=== PATIENT | male | born 1970 | race African-American/Black ===

== ENCOUNTER 2019-05-18 14:30 | Inpatient (IN) | payer OTHER ==
[2019-05-18 16:56] VITALS: BMI 22.5
--- NOTE | 2019-05-18 18:26 | HP ---
CIWA Score Nausea/Vomitin Muscle Tremors: 2 Anxiety: 2 Agitation: 2 Paroxysmal Sweats: 1-Minimal Palms Moist Orientation: 0-Oriented Tacttile Disturbances: 1-Very Mild Itch/Numbness Auditory Disturbances: 1-Very Mild Visual Disturbances: 0-None Headache: 2-Mild CIWA-Ar Total Score: 13 - Admission Criteria OASAS Guidelines: Admission for Medically Managed Detox: Requires at least one of the followin. CIWA greater than 12 2. Seizures within the past 24 hours 3. Delirium tremens within the past 24 hours 4. Hallucinations within the past 24 hours 5. Acute intervention needed for co occurring medical disorder 6. Acute intervention needed for co occurring psychiatric disorder 7. Severe withdrawal that cannot be handled at a lower level of care (continued vomiting, continued diarrhea, abnormal vital signs) requiring intravenous medication and/or fluids 8. Admission ROS BHS - HPI Chief Complaint: i need help to stop drinking alcohol Allergies/Adverse Reactions: Allergies Allergy/AdvReac Type Severity Reaction Status Date / Time No Known Allergies Allergy Verified 05/18/19 16:41 History of Present Illness: this 49 years old male with alcohol dependence,seeking detox,withdrawal symptom, multiple admissions in detox,last 03/15 unknown facility syncope alcohol related hypertension non compliance no significant period of sobriety plan for out ptient program after detox - Ebola screening Have you traveled outside of the country in the last 21 days: No (N) Have you had contact with anyone from an Ebola affected area: No Do you have a fever: No - Review of Systems Constitutional: Chills, Loss of Appetite, Malaise, Night Sweats, Changes in sleep, Unintentional Wgt. Loss EENT: reports: Nose Congestion Respiratory: reports: No Symptoms reported Cardiac: reports: No Symptoms Reported GI: reports: Nausea, Poor Appetite, Abdominal cramping : reports: No Symptoms Reported Musculoskeletal: reports: Back Pain, Muscle Pain Integumentary: reports: Dryness Neuro: reports: Tremors Endocrine: reports: No Symptoms Reported Hematology: reports: No Symptoms Reported Psychiatric: reports: No Sypmtoms Reported, Judgement Intact, Mood/Affect Appropiate, Orientated x3 Other Systems: Reviewed and Negative Patient History - Patient Medical History Hx Anemia: No Hx Asthma: No Hx Chronic Obstructive Pulmonary Disease (COPD): No Hx Cardiac Disorders: No Hx Congestive Heart Failure: No Hx Hypertension: Yes (on medication non compliiance) Hx Pacemaker: No HX Cerebrovascular Accident: No Hx Seizures: No Hx Dementia: No Hx Diabetes: No Hx Gastrointestinal Disorders: No Hx Liver Disease: No Hx Genitourinary Disorders: No Hx Sexually Transmitted Disorders: No Hx Renal Disease (ESRD): No Hx Thyroid Disease: No Hx Human Immunodeficiency Virus (HIV): No (last 03/15 negative) Hx Hepatitis C: No Hx Depression: Yes (anxiety) Hx Suicide Attempt: No Hx Bipolar Disorder: No Hx Schizophrenia: No Other Medical History: no suicidal,no hmicidal - Patient Surgical History Past Surgical History: No Hx Neurologic Surgery: No Hx Cataract Extraction: No Hx Cardiac Surgery: No Hx Lung Surgery: No Hx Breast Surgery: No Hx Breast Biopsy: No Hx Abdominal Surgery: No Hx Appendectomy: No Hx Cholecystectomy: No Hx Genitourinary Surgery: No Hx Section: No Hx Orthopedic Surgery: No Anesthesia Reaction: No - PPD History Previous Implant?: Yes Documented Results: Negative w/o proof Date: 06/14/12 PPD to be Administered?: Yes - Smoking Cessation Smoking history: Never smoked Aproximately how many cigarettes per day: 0 Hx Chewing Tobacco Use: No - Substance & Tx. History Hx Alcohol Use: Yes Hx Substance Use: No Substance Use Type: Alcohol Hx Substance Use Treatment: Yes (03/15 unknown facility) - Substances abused Alcohol Substance route: Oral Frequency: Daily Amount used: 1 to 2 pints of vodka. Age of first use: 28 Date of last use: 05/18/19 Family Disease History - Family Disease History Family History: Denies Admission Physical Exam [facility] - Vital Signs Vital Signs: Vital Signs - 24 hr 05/18/19 16:49 Temperature 97.5 F L Pulse Rate 83 Respiratory 18 Rate Blood Pressure 138/85 - Physical General Appearance: Yes: Moderate Distress, Tremorous, Irritable, Sweating, Anxious HEENTM: Yes: Normal ENT Inspection, MATI, Pharynx Normal Respiratory: Yes: Lungs Clear, Normal Breath Sounds, No Respiratory Distress Neck: Yes: Within Normal Limits, Supple, Trachea in good position Breast: Yes: Within Normal Limits Cardiology: Yes: Within Normal Limits, Regular Rhythm, Regular Rate, S1, S2 Abdominal: Yes: Within Normal Limits, Normal Bowel Sounds, Non Tender, Flat, Soft Genitourinary: Yes: Within Normal Limits Back: Yes: Muscle Spasm Musculoskeletal: Yes: Back pain, Muscle Pain Extremities: Yes: Tremors, Inflammation Neurological: Yes: Fully Oriented, Alert, Motor Strength 5/5 Integumentary: Yes: Dry Lymphatic: Yes: Within Normal Limits - Diagnostic (1) Alcohol dependence with uncomplicated withdrawal Current Visit: Yes Status: Acute (2) Alcohol dependence with uncomplicated intoxication Current Visit: Yes Status: Acute (3) Essential hypertension Current Visit: No Status: Active (4) Syncope Current Visit: No Status: Active Cleared for Admission S - Detox or Rehab [facility] Level of Care: Medically Managed Detox Regimen/Protocol: Librium Breathalyzer - Breathalyzer Breathalyzer: 0.239 Urine Drug Screen - Test Device Lot number: [id number] Expiration date: 01/24/21 - Control Is test valid?: Yes - Results Drug screen NEGATIVE: No Urine drug screen results: BZO-Benzodiazepines Inpatient Rehab Admission - Rehab Decision to Admit Inpatient rehab admission?: No
[2019-05-18] MEDS ORDERED: MAGNESIUM CITRATE 300 ML BOTTLE PO PRN (18:30)
[2019-05-18] MEDS ORDERED: IBUPROFEN 400 MG TABLET (FP) PO PRN (18:30)
[2019-05-18] MEDS ORDERED: hydrOXYzine PAMOATE 25 MG CAPSULE (FP) PO PRN (18:30)
[2019-05-18] MEDS ORDERED: MAGNESIUM HYDROX 2400MG/30ML ORAL SUSPENSION 30 ML CUP PO PRN (18:30)
[2019-05-18] MEDS ORDERED: MENTHOL/PHENOL 1 EACH UD MM PRN (18:30)
[2019-05-18] MEDS ORDERED: MAG HYDROX/AL HYDROX/SIMETH 30 ML UNIT-DOSE CUP PO PRN (18:30)
[2019-05-18] MEDS ORDERED: ACETAMINOPHEN 325 MG TABLET (FP) PO PRN ×2 (18:30)
[2019-05-18] MEDS ORDERED: METHOCARBAMOL 500 MG TABLET PO PRN (18:30)
[2019-05-18] MEDS ORDERED: BISMUTH SUBSALICYLATE 524 MG/30 ML UD PO PRN (18:30)
[2019-05-18] MEDS: chlordiazePOXIDE HCL 10 MG CAPSULE PO PRN (19:24)
[2019-05-18] MEDS: THIAMINE HCL 100 MG TABLET (FP) PO SCH (22:46)
[2019-05-18] MEDS: chlordiazePOXIDE HCL 25 MG CAPSULE PO SCH (23:46)
[2019-05-19] MEDS: chlordiazePOXIDE HCL 25 MG CAPSULE PO SCH ×2 (06:05→12:51)
[2019-05-19] MEDS: amLODIPine BESYLATE 5 MG TABLET (FP) PO SCH (10:14)
[2019-05-19] MEDS: PRENATAL VITAMINS W/ FOLIC ACID TABLET (FP) PO SCH (10:14)
[2019-05-19 10:34] LABS: HEMATOCRIT 39.9 % (35.4-49); MCHC 32.6 g/dl (32.0-35.9); MEAN CELL VOLUME 94.9 fl (80-96); MEAN PLT VOLUME 9.4 fl (7.5-11.1); PLATELET COUNT 228 K/MM3 (134-434); RDW 14.9 % (11.9-15.9); WHITE BLOOD COUNT 3.9 K/mm3 (4.0-10.0)
[2019-05-19 10:59] LABS: BILIRUBIN,TOTAL 1.2 mg/dL (0.2-1); BLOOD UREA NITROGEN 11.4 mg/dL (7-18); CALCIUM 8.9 mg/dL (8.5-10.1); CREATININE 0.9 mg/dL (0.55-1.3)
[2019-05-19 11:12] LABS: URINE APPEARANCE TURBID; URINE BILIRUBIN NEGATIVE (NEGATIVE); URINE COLOR YELLOW; URINE GLUCOSE (UA) NEGATIVE (NEGATIVE); URINE KETONE TRACE (NEGATIVE); URINE LEUK ESTERASE NEGATIVE (NEGATIVE); URINE NITRITE NEGATIVE (NEGATIVE); URINE PROTEIN NEGATIVE (NEGATIVE)
--- NOTE | 2019-05-19 14:32 | PN ---
S CIWA - CIWA Score Nausea/Vomitin-Mild Nausea/No Vomiting Muscle Tremors: 2 Anxiety: 3 Agitation: 2 Paroxysmal Sweats: 1-Minimal Palms Moist Orientation: 0-Oriented Tacttile Disturbances: 1-Very Mild Itch/Numbness Auditory Disturbances: 0-None Visual Disturbances: 2-Mild Sensitivity Headache: 0-None Present CIWA-Ar Total Score: 12 BHS Progress Note (SOAP) Subjective: ANXIOUS, POOR SLEEP, SWEATING Objective: 05/19/19 14:31 Vital Signs - 24 hr 05/18/19 05/18/19 05/18/19 16:49 19:30 20:00 Temperature 97.5 F L Pulse Rate 83 79 82 Respiratory 18 18 18 Rate Blood Pressure 138/85 05/18/19 05/18/19 05/18/19 20:30 21:00 21:30 Temperature Pulse Rate 85 83 87 Respiratory 18 18 18 Rate Blood Pressure 05/18/19 05/18/19 05/18/19 22:00 22:26 22:30 Temperature 97.3 F L Pulse Rate 94 H 79 92 H Respiratory 18 18 18 Rate Blood Pressure 140/91 05/18/19 05/18/19 05/19/19 23:00 23:30 00:00 Temperature Pulse Rate 88 90 91 H Respiratory 18 18 18 Rate Blood Pressure 05/19/19 05/19/19 05/19/19 00:30 00:47 01:00 Temperature Pulse Rate 100 H 91 H 95 H Respiratory 18 18 18 Rate Blood Pressure 05/19/19 05/19/19 05/19/19 01:30 02:00 02:30 Temperature Pulse Rate 97 H 101 H 105 H Respiratory 18 18 18 Rate Blood Pressure 05/19/19 05/19/19 05/19/19 03:00 03:30 04:00 Temperature Pulse Rate 98 H 96 H 96 H Respiratory 18 18 18 Rate Blood Pressure 05/19/19 05/19/19 05/19/19 04:30 05:00 05:30 Temperature Pulse Rate 96 H 96 H 98 H Respiratory 18 18 Rate Blood Pressure 05/19/19 05/19/19 05/19/19 06:00 06:30 06:40 Temperature 97.6 F Pulse Rate 96 H 96 H 97 H Respiratory 18 18 18 Rate Blood Pressure 143/87 05/19/19 05/19/19 05/19/19 07:00 07:30 08:00 Temperature Pulse Rate 98 H 95 H 90 Respiratory 18 18 18 Rate Blood Pressure 05/19/19 05/19/19 05/19/19 08:03 09:00 09:27 Temperature 97.5 F L Pulse Rate 91 H 91 H Respiratory 18 18 18 Rate Blood Pressure 177/109 H 05/19/19 05/19/19 05/19/19 09:30 10:00 10:30 Temperature Pulse Rate 86 88 82 Respiratory 18 18 18 Rate Blood Pressure 05/19/19 05/19/19 05/19/19 11:00 11:30 12:00 Temperature Pulse Rate 84 86 89 Respiratory 18 18 18 Rate Blood Pressure 05/19/19 05/19/19 05/19/19 12:30 13:00 13:30 Temperature Pulse Rate 82 80 84 Respiratory 18 18 18 Rate Blood Pressure 05/19/19 13:39 Temperature 98 F Pulse Rate 81 Respiratory 18 Rate Blood Pressure 147/96 Laboratory 05/18/19 05/19/19 05/19/19 07:50 08:00 08:00 WBC 3.9 K/mm3 L K/mm3 (4.0-10.0) RBC 4.20 M/mm3 M/mm3 (4.00-5.60) Hgb 13.0 GM/dL GM/dL (11.7-16.9) Hct 39.9 % D % (35.4-49) MCV 94.9 fl fl (80-96) MCH 31.0 pg pg (25.7-33.7) MCHC 32.6 g/dl g/dl (32.0-35.9) RDW 14.9 % % (11.9-15.9) Plt Count 228 K/MM3 K/MM3 (134-434) MPV 9.4 fl fl (7.5-11.1) Sodium 143 mmol/L mmol/L (136-145) Potassium 4.0 mmol/L mmol/L (3.5-5.1) Chloride 103 mmol/L mmol/L (98-107) Carbon Dioxide 32 mmol/L mmol/L (21-32) Anion Gap 8 MMOL/L MMOL/L (8-16) BUN 11.4 mg/dL mg/dL (7-18) Creatinine 0.9 mg/dL mg/dL (0.55-1.3) Est GFR (CKD-EPI)AfAm 115.83 Est GFR (CKD-EPI)NonAf 99.94 Random Glucose 83 mg/dL mg/dL (74-106) Calcium 8.9 mg/dL mg/dL (8.5-10.1) Total Bilirubin 1.2 mg/dL H mg/dL (0.2-1) AST 33 U/L U/L (15-37) ALT 38 U/L U/L (13-61) Alkaline Phosphatase 55 U/L U/L (45-117) Total Protein 8.0 g/dl g/dl (6.4-8.2) Albumin 4.0 g/dl g/dl (3.4-5.0) Urine Color Yellow Urine Appearance Turbid Urine pH 6.0 (5.0-8.0) Ur Specific [place] 1.022 (1.010-1.035) Urine Protein Negative (NEGATIVE) Urine Glucose (UA) Negative (NEGATIVE) Urine Ketones Trace H (NEGATIVE) Urine Blood Negative (NEGATIVE) Urine Nitrite Negative (NEGATIVE) Urine Bilirubin Negative (NEGATIVE) Urine Urobilinogen 1.0 mg/dL mg/dL (0.2-1.0) Ur Leukocyte Esterase Negative (NEGATIVE) RPR Titer 05/19/19 08:00 WBC RBC Hgb Hct MCV MCH MCHC RDW Plt Count MPV Sodium Potassium Chloride Carbon Dioxide Anion Gap BUN Creatinine Est GFR (CKD-EPI)AfAm Est GFR (CKD-EPI)NonAf Random Glucose Calcium Total Bilirubin AST ALT Alkaline Phosphatase Total Protein Albumin Urine Color Urine Appearance Urine pH Ur Specific [place] Urine Protein Urine Glucose (UA) Urine Ketones Urine Blood Urine Nitrite Urine Bilirubin Urine Urobilinogen Ur Leukocyte Esterase RPR Titer Nonreactive (NONREACTIVE) Assessment: 05/19/19 14:32 ONGOING WITHDRAWAL Plan: MONITOR VS CONT DETOX PROTOCOL
[2019-05-19] MEDS: chlordiazePOXIDE HCL 10 MG CAPSULE PO PRN (17:55)
[2019-05-19] MEDS: chlordiazePOXIDE 5 MG CAPSULE PO SCH (21:42)
[2019-05-19] MEDS: THIAMINE HCL 100 MG TABLET (FP) PO SCH (22:42)
[2019-05-19] MEDS: MELATONIN 5 MG TABLETS PO PRN (22:43)
[2019-05-19] MEDS ORDERED: cloNIDine HCL 0.1 MG TABLET PO ONE (23:36)
--- NOTE | 2019-05-19 23:39 | PN ---
S Progress Note Note: Patient's blood pressure is B/P 158/106. Patient is asymptomatic Vital Signs Temperature 97.8 F 05/19/19 21:52 Pulse Rate 94 H 05/19/19 21:52 Respiratory Rate 18 05/19/19 21:52 Blood Pressure 158/116 H 05/19/19 21:52 O2 Sat by Pulse Oximetry (%) Action : Clonidine 0.1mg tablet oral ordered
[2019-05-20] MEDS: chlordiazePOXIDE 5 MG CAPSULE PO SCH ×2 (05:00→13:14)
[2019-05-20] MEDS: amLODIPine BESYLATE 5 MG TABLET (FP) PO SCH (10:43)
[2019-05-20] MEDS: PRENATAL VITAMINS W/ FOLIC ACID TABLET (FP) PO SCH (10:43)
--- NOTE | 2019-05-20 15:49 | PN ---
[facility] CIWA - CIWA Score Nausea/Vomitin-No Nausea/No Vomiting Muscle Tremors: 2 Anxiety: 1-Mildly Anxious Agitation: 0-Normal Activity Paroxysmal Sweats: 2 Orientation: 2-Disoriented Date<2 days Tacttile Disturbances: 0-None Auditory Disturbances: 2-Mild Harshness/Frighten Visual Disturbances: 2-Mild Sensitivity Headache: 0-None Present CIWA-Ar Total Score: 11 S Progress Note (SOAP) Subjective: Anxious, Sweating, Poor Appetite. Objective: PATIENT A & O X 2 (UNCERTAIN ABOUT CURRENT DAY / DATE). PATIENT OBSERVED AMBULATING ON UNIT UNASSISTED. IN NO ACUTE DISTRESS. 05/20/19 15:50 Vital Signs Temperature 98.5 F 05/20/19 13:19 Pulse Rate 91 H 05/20/19 13:19 Respiratory Rate 18 05/20/19 13:19 Blood Pressure 132/65 05/20/19 13:19 O2 Sat by Pulse Oximetry (%) Laboratory Tests 05/18/19 05/19/19 05/19/19 07:50 08:00 08:00 WBC 3.9 L RBC 4.20 Hgb 13.0 Hct 39.9 D MCV 94.9 MCH 31.0 MCHC 32.6 RDW 14.9 Plt Count 228 MPV 9.4 Sodium 143 Potassium 4.0 Chloride 103 Carbon Dioxide 32 Anion Gap 8 BUN 11.4 Creatinine 0.9 Est GFR (CKD-EPI)AfAm 115.83 Est GFR (CKD-EPI)NonAf 99.94 Random Glucose 83 Calcium 8.9 Total Bilirubin 1.2 H AST 33 ALT 38 Alkaline Phosphatase 55 Total Protein 8.0 Albumin 4.0 Urine Color Yellow Urine Appearance Turbid Urine pH 6.0 Ur Specific [place] 1.022 Urine Protein Negative Urine Glucose (UA) Negative Urine Ketones Trace H Urine Blood Negative Urine Nitrite Negative Urine Bilirubin Negative Urine Urobilinogen 1.0 Ur Leukocyte Esterase Negative RPR Titer 05/19/19 08:00 WBC RBC Hgb Hct MCV MCH MCHC RDW Plt Count MPV Sodium Potassium Chloride Carbon Dioxide Anion Gap BUN Creatinine Est GFR (CKD-EPI)AfAm Est GFR (CKD-EPI)NonAf Random Glucose Calcium Total Bilirubin AST ALT Alkaline Phosphatase Total Protein Albumin Urine Color Urine Appearance Urine pH Ur Specific [place] Urine Protein Urine Glucose (UA) Urine Ketones Urine Blood Urine Nitrite Urine Bilirubin Urine Urobilinogen Ur Leukocyte Esterase RPR Titer Nonreactive LABS NOTED. Assessment: 05/20/19 15:51 WITHDRAWAL SYMPTOMS. 05/20/19 15:51 Plan: CONTINUE DETOX.
[2019-05-20] MEDS ORDERED: chlordiazePOXIDE HCL 10 MG CAPSULE PO PRN (21:00)
[2019-05-20] MEDS: chlordiazePOXIDE HCL 10 MG CAPSULE PO SCH (22:02)
[2019-05-20] MEDS: THIAMINE HCL 100 MG TABLET (FP) PO SCH (22:02)
[2019-05-21] MEDS: chlordiazePOXIDE HCL 10 MG CAPSULE PO SCH ×3 (06:05→22:02)
[2019-05-21] MEDS: amLODIPine BESYLATE 5 MG TABLET (FP) PO SCH (10:50)
[2019-05-21] MEDS: PRENATAL VITAMINS W/ FOLIC ACID TABLET (FP) PO SCH (10:51)
--- NOTE | 2019-05-21 13:33 | PN ---
S CIWA - CIWA Score Nausea/Vomitin-No Nausea/No Vomiting Muscle Tremors: None Anxiety: 3 Agitation: 1-Slight > Activity Paroxysmal Sweats: 3 Orientation: 0-Oriented Tacttile Disturbances: 1-Very Mild Itch/Numbness Auditory Disturbances: 0-None Visual Disturbances: 1-Very Mild Sensitivity Headache: 0-None Present CIWA-Ar Total Score: 9 BHS Progress Note (SOAP) Subjective: Anxious, Poor Appetite, Sweating. Objective: PATIENT A & O X 3, OBSERVED AMBULATING ON UNIT UNASSISTED. IN NO ACUTE DISTRESS. 05/21/19 13:36 Vital Signs Temperature 97 F L 05/21/19 13:29 Pulse Rate 89 05/21/19 13:29 Respiratory Rate 18 05/21/19 13:29 Blood Pressure 118/80 05/21/19 13:29 O2 Sat by Pulse Oximetry (%) Laboratory Tests 05/18/19 05/19/19 05/19/19 07:50 08:00 08:00 WBC 3.9 L RBC 4.20 Hgb 13.0 Hct 39.9 D MCV 94.9 MCH 31.0 MCHC 32.6 RDW 14.9 Plt Count 228 MPV 9.4 Sodium 143 Potassium 4.0 Chloride 103 Carbon Dioxide 32 Anion Gap 8 BUN 11.4 Creatinine 0.9 Est GFR (CKD-EPI)AfAm 115.83 Est GFR (CKD-EPI)NonAf 99.94 Random Glucose 83 Calcium 8.9 Total Bilirubin 1.2 H AST 33 ALT 38 Alkaline Phosphatase 55 Total Protein 8.0 Albumin 4.0 Urine Color Yellow Urine Appearance Turbid Urine pH 6.0 Ur Specific [place] 1.022 Urine Protein Negative Urine Glucose (UA) Negative Urine Ketones Trace H Urine Blood Negative Urine Nitrite Negative Urine Bilirubin Negative Urine Urobilinogen 1.0 Ur Leukocyte Esterase Negative RPR Titer 05/19/19 08:00 WBC RBC Hgb Hct MCV MCH MCHC RDW Plt Count MPV Sodium Potassium Chloride Carbon Dioxide Anion Gap BUN Creatinine Est GFR (CKD-EPI)AfAm Est GFR (CKD-EPI)NonAf Random Glucose Calcium Total Bilirubin AST ALT Alkaline Phosphatase Total Protein Albumin Urine Color Urine Appearance Urine pH Ur Specific [place] Urine Protein Urine Glucose (UA) Urine Ketones Urine Blood Urine Nitrite Urine Bilirubin Urine Urobilinogen Ur Leukocyte Esterase RPR Titer Nonreactive LABS NOTED. Assessment: 05/21/19 13:37 WITHDRAWAL SYMPTOMS. Plan: CONTINUE DETOX.
[2019-05-21] MEDS: THIAMINE HCL 100 MG TABLET (FP) PO SCH (22:02)
[2019-05-21] MEDS: MELATONIN 5 MG TABLETS PO PRN (22:02)
[2019-05-22 09:09] VITALS: BP 141/96; PULSE 90; TEMP 96.9
[2019-05-22] MEDS: amLODIPine BESYLATE 5 MG TABLET (FP) PO SCH (10:51)
[2019-05-22] MEDS: PRENATAL VITAMINS W/ FOLIC ACID TABLET (FP) PO SCH (10:51)
--- NOTE | 2019-05-22 16:45 | DS ---
[facility] Detox Discharge Summary Admission Date: 05/18/19 Discharge Date: 05/22/19 - History Present History: Alcohol Dependence Additional Comments: PATIENT GOING TO [facility] ([place], [place]) FOR AFTERCARE. PATIENT DECLINED OFFER OF MEDICATION PRESCRIPTION FOR HOME MEDICATION (AMLODIPINE) AT TIME OF DISCHARGE FROM DETOX, NOTING THAT HE CURRENTLY HAS ADEQUATE SUPPLIES OF AMLODIPINE AT HOME. PATIENT WAS DISCHARGED FORM DETOX UNIT IN STABLE MEDICAL CONDITION. Pertinent Past History: HTN, Depression, Anxiety, History Of Syncope. - Physical Exam Results Vital Signs: Vital Signs Temperature 96.9 F L 05/22/19 09:08 Pulse Rate 90 05/22/19 09:08 Respiratory Rate 16 05/22/19 09:08 Blood Pressure 141/96 05/22/19 09:08 O2 Sat by Pulse Oximetry (%) Pertinent Admission Physical Exam Findings: WITHDRAWAL SYMPTOMS. Laboratory Tests 05/18/19 05/19/19 05/19/19 07:50 08:00 08:00 WBC 3.9 L RBC 4.20 Hgb 13.0 Hct 39.9 D MCV 94.9 MCH 31.0 MCHC 32.6 RDW 14.9 Plt Count 228 MPV 9.4 Sodium 143 Potassium 4.0 Chloride 103 Carbon Dioxide 32 Anion Gap 8 BUN 11.4 Creatinine 0.9 Est GFR (CKD-EPI)AfAm 115.83 Est GFR (CKD-EPI)NonAf 99.94 Random Glucose 83 Calcium 8.9 Total Bilirubin 1.2 H AST 33 ALT 38 Alkaline Phosphatase 55 Total Protein 8.0 Albumin 4.0 Urine Color Yellow Urine Appearance Turbid Urine pH 6.0 Ur Specific [place] 1.022 Urine Protein Negative Urine Glucose (UA) Negative Urine Ketones Trace H Urine Blood Negative Urine Nitrite Negative Urine Bilirubin Negative Urine Urobilinogen 1.0 Ur Leukocyte Esterase Negative RPR Titer 05/19/19 08:00 WBC RBC Hgb Hct MCV MCH MCHC RDW Plt Count MPV Sodium Potassium Chloride Carbon Dioxide Anion Gap BUN Creatinine Est GFR (CKD-EPI)AfAm Est GFR (CKD-EPI)NonAf Random Glucose Calcium Total Bilirubin AST ALT Alkaline Phosphatase Total Protein Albumin Urine Color Urine Appearance Urine pH Ur Specific [place] Urine Protein Urine Glucose (UA) Urine Ketones Urine Blood Urine Nitrite Urine Bilirubin Urine Urobilinogen Ur Leukocyte Esterase RPR Titer Nonreactive LABS NOTED. - Treatment Hospital Course: Detox Protocol Followed, Detoxed Safely, Responded well, Discharged Condition Good Patient has Accepted a Rehab Referral to: PO. GOING TO [facility] ([place], [place]). - Medication Discharge Medications: Ambulatory Orders Amlodipine Besylate [Norvasc -] 10 mg PO DAILY 30 Days #30 tablet 05/20/19 - Diagnosis (1) Essential hypertension Status: Active (2) Syncope Status: Active (3) Alcohol dependence with uncomplicated intoxication Status: Acute (4) Alcohol dependence with uncomplicated withdrawal Status: Acute - AMA Did Patient Leave Against Medical Advice: No
== END 2019-05-22 11:07 | disposition home or self-care (01) | DRG 775 ==
LOC: YASAS 14:30 → Y3N 18:35
PROVIDERS: ADMIT Surgery; ATTEND Surgery
PROC: HZ2ZZZZ Detoxification Services for Substance Abuse Treatment (ICD-10-PCS; principal; 2019-05-18)
DX: F10.230 Alcohol dependence with withdrawal, uncomplicated (principal); F10.220 Alcohol dependence with intoxication, uncomplicated; I10 Essential (primary) hypertension; Z91.14 Patient's other noncompliance with medication regimen
CPT/HCPCS: 36415; 80053; 81003; 85027; 86593; J0735

== ENCOUNTER 2019-12-09 09:45 | Inpatient (IN) | payer OTHER ==
[2019-12-09 10:10] VITALS: BMI 23.5
--- NOTE | 2019-12-09 10:30 | HP ---
CIWA Score Nausea/Vomitin-No Nausea/No Vomiting Muscle Tremors: 3 Anxiety: 2 Agitation: 4-Moderately Restless Paroxysmal Sweats: 1-Minimal Palms Moist Orientation: 0-Oriented Tacttile Disturbances: 3-Moderate Itch/Numb/Burn Auditory Disturbances: 0-None Visual Disturbances: 0-None Headache: 0-None Present CIWA-Ar Total Score: 13 - Admission Criteria OASAS Guidelines: Admission for Medically Managed Detox: Requires at least one of the followin. CIWA greater than 12 2. Seizures within the past 24 hours 3. Delirium tremens within the past 24 hours 4. Hallucinations within the past 24 hours 5. Acute intervention needed for co occurring medical disorder 6. Acute intervention needed for co occurring psychiatric disorder 7. Severe withdrawal that cannot be handled at a lower level of care (continued vomiting, continued diarrhea, abnormal vital signs) requiring intravenous medication and/or fluids 8. Admitting History and Physical - Admission Chief Complaint: "I want to stop drinking. 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 " History of Present Illness: 49 years old male with alcohol dependence,seeking detox,withdrawal symptom. multiple admissions in detox,last 05/15 at [facility]. He was supposed to go to [facility] upon discharge but did not complete the admission process for that program in [facility] He had been admitted at [facility] for 2 days due to HTN and low potassium and then recommended to be discharged and go to detox. He was at [facility] seeking detox there but left prior to being called. He was there due to uncontrolled blood pressure, non-compliant with medications and had run out of medications. He is drinking 3pints of vodka daily, last yesterday. He denies withdrawal seizures but did have a blackout last week. PMH: hypertension non compliance No significant period of sobriety Plan for out patient program after detox was not followed through. History Source: Patient Limitations to Obtaining History: No Limitations - Past Surgical History Past Surgical History: Yes: None - Smoking History Smoking history: Never smoked Have you smoked in the past 12 months: No Aproximately how many cigarettes per day: 0 - Alcohol/Substance Use Hx Alcohol Use: Yes (3 pints of vodka) Number of Drinks Daily: 10 Date of Last Use: 12/07/19 - Social History Usual Living Arrangement: Yes: Other (either with sister or friend) Do you think of yourself as: Straight/Heterosexual ADL: Family Assistance Occupation: unemployed moving driver sales History of Recent Travel: No Admission ROS BHS - HPI Allergies/Adverse Reactions: Allergies Allergy/AdvReac Type Severity Reaction Status Date / Time No Known Allergies Allergy Verified 12/09/19 10:02 Exam Limitations: No Limitations - Ebola screening Have you traveled outside of the country in the last 21 days: No Have you had contact with anyone from an Ebola affected area: No Have you been sick,other than usual withdrawal symptoms: No Do you have a fever: No - Review of Systems Constitutional: Loss of Appetite EENT: reports: No Symptoms Reported Respiratory: reports: No Symptoms reported Cardiac: reports: No Symptoms Reported GI: reports: No Symptoms Reported : reports: No Symptoms Reported Musculoskeletal: reports: Back Pain Integumentary: reports: No Symptoms Reported Neuro: reports: No Symptoms reported Endocrine: reports: No Symptoms Reported Hematology: reports: No Symptoms Reported Psychiatric: reports: Judgement Intact, Mood/Affect Appropiate, Orientated x3, Agitated, Anxious Other Systems: Reviewed and Negative Patient History - Patient Medical History Hx Anemia: No Hx Asthma: No Hx Chronic Obstructive Pulmonary Disease (COPD): No Hx Cardiac Disorders: No Hx Congestive Heart Failure: No Hx Hypertension: Yes (on medication non compliiance) Hx Pacemaker: No HX Cerebrovascular Accident: No Hx Seizures: No Hx Dementia: No Hx Diabetes: No Hx Gastrointestinal Disorders: No Hx Liver Disease: No Hx Genitourinary Disorders: No Hx Sexually Transmitted Disorders: No Hx Renal Disease (ESRD): No Hx Thyroid Disease: No Hx Human Immunodeficiency Virus (HIV): No (last 03/15 negative) Hx Hepatitis C: No Hx Depression: Yes (anxiety) Hx Suicide Attempt: No Hx Bipolar Disorder: No Hx Schizophrenia: No - Patient Surgical History Past Surgical History: No Hx Neurologic Surgery: No Hx Cataract Extraction: No Hx Cardiac Surgery: No Hx Lung Surgery: No Hx Breast Surgery: No Hx Breast Biopsy: No Hx Abdominal Surgery: No Hx Appendectomy: No Hx Cholecystectomy: No Hx Genitourinary Surgery: No Hx Section: No Hx Orthopedic Surgery: No Anesthesia Reaction: No - PPD History Date: 05/20/19 - Smoking Cessation Smoking history: Never smoked Aproximately how many cigarettes per day: 0 Hx Chewing Tobacco Use: No - Substances abused Alcohol Substance route: Oral Frequency: Daily Amount used: 1 to 2 pints of vodka. Age of first use: 28 Date of last use: 12/08/19 Admission Physical Exam [facility] - Vital Signs Vital Signs: Vital Signs - 24 hr 12/09/19 10:06 Temperature 97.8 F Pulse Rate 87 Respiratory 20 Rate Blood Pressure 173/100 H - Physical General Appearance: Yes: Mild Distress, Tremorous, Irritable, Sweating HEENTM: Yes: EOMI, Hearing grossly Normal, Normal ENT Inspection, Normocephalic , Normal Voice, MATI, Pharynx Normal, Tm's normal Respiratory: Yes: Chest Non-Tender, Lungs Clear, Normal Breath Sounds, No Respiratory Distress, No Accessory Muscle Use Neck: Yes: No masses,lesions,Nodules, Supple, Trachea in good position Breast: Yes: Within Normal Limits Cardiology: Yes: Regular Rhythm, Regular Rate, S1, S2 Abdominal: Yes: Normal Bowel Sounds, Non Tender, Soft Genitourinary: Yes: Within Normal Limits Back: Yes: Normal Inspection Musculoskeletal: Yes: full range of Motion, Gait Steady, Pelvis Stable Extremities: Yes: Normal Capillary Refill, Normal Inspection, Normal Range of Motion, Non-Tender Neurological: Yes: notch grinder II-XII NML intact, Fully Oriented, Alert, Motor Strength 5/5, Normal Mood/Affect, Normal Response Integumentary: Yes: Normal Color, Warm Lymphatic: Yes: Within Normal Limits - Diagnostic (1) Essential hypertension Current Visit: Yes Status: Active (2) Alcohol dependence with uncomplicated withdrawal Current Visit: Yes Status: Acute Cleared for Admission [facility] - Detox or Rehab [facility] Level of Care: Medically Managed Detox Regimen/Protocol: Librium Screened but not Admitted - Documentation of Visit Screened but not Admitted: No Breathalyzer - Breathalyzer Breathalyzer: 0 (last drank 2 days ago) Urine Drug Screen - Test Device Lot number: [id number] Expiration date: 01/24/21 - Control Is test valid?: Yes - Results Drug screen NEGATIVE: No Urine drug screen results: BZO-Benzodiazepines Inpatient Rehab Admission - Rehab Decision to Admit Inpatient rehab admission?: No
[2019-12-09] MEDS ORDERED: MENTHOL/PHENOL 1 EACH UD MM PRN (10:41)
[2019-12-09] MEDS ORDERED: BISMUTH SUBSALICYLATE 262 MG/15 ML BTL PO PRN (10:41)
[2019-12-09] MEDS ORDERED: IBUPROFEN 400 MG TABLET (FP) PO PRN (10:41)
[2019-12-09] MEDS ORDERED: chlordiazePOXIDE HCL 25 MG CAPSULE PO PRN (10:41)
[2019-12-09] MEDS ORDERED: ACETAMINOPHEN 325 MG TABLET (FP) PO PRN ×2 (10:41)
[2019-12-09] MEDS ORDERED: MAGNESIUM CITRATE 300 ML BOTTLE PO PRN (10:41)
[2019-12-09] MEDS ORDERED: hydrOXYzine PAMOATE 25 MG CAPSULE (FP) PO PRN (10:41)
[2019-12-09] MEDS ORDERED: MAGNESIUM HYDROX 2400MG/30ML ORAL SUSPENSION 30 ML CUP PO PRN (10:41)
[2019-12-09] MEDS ORDERED: MAG HYDROX/AL HYDROX/SIMETH 30 ML UNIT-DOSE CUP PO PRN (10:41)
[2019-12-09] MEDS ORDERED: METHOCARBAMOL 500 MG TABLET PO PRN (10:41)
[2019-12-09] MEDS: chlordiazePOXIDE HCL 25 MG CAPSULE PO SCH ×3 (12:23→22:26)
[2019-12-09] MEDS: amLODIPine BESYLATE 10 MG TABLET (FP) PO SCH (12:25)
[2019-12-09 15:10] LABS: HEMATOCRIT 38.1 % (35.4-49); HEMOGLOBIN 12.5 GM/dL (11.7-16.9); MCH 32.7 pg (25.7-33.7); MCHC 32.8 g/dl (32.0-35.9); MEAN CELL VOLUME 99.5 fl (80-96); MEAN PLT VOLUME 8.6 fl (7.5-11.1); PLATELET COUNT 207 K/MM3 (134-434); RBC 3.83 M/mm3 (4.00-5.60); RDW 13.4 % (11.9-15.9); WHITE BLOOD COUNT 3.2 K/mm3 (4.0-10.0)
[2019-12-09 15:28] LABS: ALBUMIN 4.6 g/dl (3.4-5.0); BILIRUBIN,TOTAL 1.5 mg/dL (0.2-1); BLOOD UREA NITROGEN 10.2 mg/dL (7-18); CALCIUM 9.2 mg/dL (8.5-10.1); CREATININE 0.8 mg/dL (0.55-1.3); POTASSIUM 3.4 mmol/L (3.5-5.1); TOT PROT 8.6 g/dl (6.4-8.2)
[2019-12-09] MEDS: THIAMINE HCL 100 MG TABLET (FP) PO SCH (22:26)
[2019-12-10] MEDS: chlordiazePOXIDE HCL 25 MG CAPSULE PO SCH ×4 (06:01→22:25)
--- NOTE | 2019-12-10 07:52 | PN ---
S Progress Note Note: Patient's potassium level is 3.4. Patient is asymptomatic Vital Signs Temperature 98.1 F 12/09/19 21:37 Pulse Rate 82 12/09/19 21:37 Respiratory Rate 18 12/10/19 03:30 Blood Pressure 157/80 12/09/19 21:37 O2 Sat by Pulse Oximetry (%) Action: Potassium chloride 40mEq daily x 2 days order
[2019-12-10] MEDS ORDERED: cloNIDine HCL 0.1 MG TABLET PO ONE (10:14)
[2019-12-10] MEDS: PRENATAL VITAMINS W/ FOLIC ACID TABLET (FP) PO SCH (10:18)
[2019-12-10] MEDS: POTASSIUM CHLORIDE TABS 20 MEQ TABLET.ER (FP) PO SCH (10:19)
[2019-12-10] MEDS: amLODIPine BESYLATE 10 MG TABLET (FP) PO SCH (10:19)
[2019-12-10] MEDS: NICOTINE 14 MG/24 HOURS TOPICAL PATCH TD SCH (10:24)
[2019-12-10] MEDS ORDERED: PNEUMOC 13-VAL CONJ-DIP CRM/PF 0.5 ML DISP.SYRIN IM ONE (12:00)
[2019-12-10] MEDS ORDERED: PNEUMOCOCCAL 23 VACCINE 0.5 ML VIAL IM ONE (12:00)
--- NOTE | 2019-12-10 12:07 | PN ---
S CIWA - CIWA Score Nausea/Vomitin-Mild Nausea/No Vomiting Muscle Tremors: 2 Anxiety: 2 Agitation: 2 Paroxysmal Sweats: No Perspiration Orientation: 0-Oriented Tacttile Disturbances: 1-Very Mild Itch/Numbness Auditory Disturbances: 0-None Visual Disturbances: 0-None Headache: 2-Mild CIWA-Ar Total Score: 10 S Progress Note (SOAP) Subjective: alert,irritable,anxious,interrupted sleep,tremor,pain in the body Objective: 12/10/19 12:05 Vital Signs Temperature 97.7 F 12/10/19 11:35 Pulse Rate 87 12/10/19 11:35 Respiratory Rate 18 12/10/19 11:35 Blood Pressure 109/77 12/10/19 11:35 O2 Sat by Pulse Oximetry (%) Laboratory Last Values WBC 3.2 K/mm3 (4.0-10.0) L 12/09/19 11:10 RBC 3.83 M/mm3 (4.00-5.60) L 12/09/19 11:10 Hgb 12.5 GM/dL (11.7-16.9) 12/09/19 11:10 Hct 38.1 % (35.4-49) 12/09/19 11:10 MCV 99.5 fl (80-96) H 12/09/19 11:10 MCH 32.7 pg (25.7-33.7) 12/09/19 11:10 MCHC 32.8 g/dl (32.0-35.9) 12/09/19 11:10 RDW 13.4 % (11.9-15.9) D 12/09/19 11:10 Plt Count 207 K/MM3 (134-434) 12/09/19 11:10 MPV 8.6 fl (7.5-11.1) 12/09/19 11:10 Sodium 134 mmol/L (136-145) L 12/09/19 11:10 Potassium 3.4 mmol/L (3.5-5.1) L 12/09/19 11:10 Chloride 97 mmol/L (98-107) L 12/09/19 11:10 Carbon Dioxide 33 mmol/L (21-32) H 12/09/19 11:10 Anion Gap 4 MMOL/L (8-16) L 12/09/19 11:10 BUN 10.2 mg/dL (7-18) 12/09/19 11:10 Creatinine 0.8 mg/dL (0.55-1.3) 12/09/19 11:10 Est GFR (CKD-EPI)AfAm 121.57 12/09/19 11:10 Est GFR (CKD-EPI)NonAf 104.89 12/09/19 11:10 Random Glucose 122 mg/dL (74-106) H 12/09/19 11:10 Calcium 9.2 mg/dL (8.5-10.1) 12/09/19 11:10 Total Bilirubin 1.5 mg/dL (0.2-1) H 12/09/19 11:10 AST 81 U/L (15-37) H 12/09/19 11:10 ALT 92 U/L (13-61) H 12/09/19 11:10 Alkaline Phosphatase 66 U/L (45-117) 12/09/19 11:10 Total Protein 8.6 g/dl (6.4-8.2) H 12/09/19 11:10 Albumin 4.6 g/dl (3.4-5.0) 12/09/19 11:10 RPR Titer Nonreactive (NONREACTIVE) 12/09/19 11:10 Assessment: 12/10/19 12:06 withdrawal symptom Plan: continue detox,k is 3.4 on k replacement,glucose 122,will do fasting glucose in am,repeat cmp in am elevation of bilirubin,ast,alt and check potassium
[2019-12-10] MEDS: THIAMINE HCL 100 MG TABLET (FP) PO SCH (22:25)
[2019-12-10] MEDS: MELATONIN 5 MG TABLETS PO PRN (22:26)
[2019-12-11] MEDS: chlordiazePOXIDE HCL 25 MG CAPSULE PO SCH ×4 (07:22→22:49)
[2019-12-11 09:59] LABS: ALBUMIN 3.7 g/dl (3.4-5.0); BILIRUBIN,TOTAL 0.9 mg/dL (0.2-1); BLOOD UREA NITROGEN 8.4 mg/dL (7-18); CALCIUM 9.4 mg/dL (8.5-10.1); CREATININE 0.7 mg/dL (0.55-1.3); POTASSIUM 3.8 mmol/L (3.5-5.1); TOT PROT 7.6 g/dl (6.4-8.2)
[2019-12-11] MEDS: POTASSIUM CHLORIDE TABS 20 MEQ TABLET.ER (FP) PO SCH (10:25)
[2019-12-11] MEDS: PRENATAL VITAMINS W/ FOLIC ACID TABLET (FP) PO SCH (10:25)
[2019-12-11] MEDS: NICOTINE 14 MG/24 HOURS TOPICAL PATCH TD SCH (10:25)
[2019-12-11] MEDS: amLODIPine BESYLATE 10 MG TABLET (FP) PO SCH (10:25)
--- NOTE | 2019-12-11 14:27 | PN ---
S CIWA - CIWA Score Nausea/Vomitin-Mild Nausea/No Vomiting Muscle Tremors: 1-None Visible, but [place] Anxiety: 2 Agitation: 2 Paroxysmal Sweats: No Perspiration Orientation: 0-Oriented Tacttile Disturbances: 1-Very Mild Itch/Numbness Auditory Disturbances: 0-None Visual Disturbances: 0-None Headache: 2-Mild CIWA-Ar Total Score: 9 BHS Progress Note (SOAP) Subjective: alert,irritable,anxious,interrupted sleep Objective: 12/11/19 14:25 Vital Signs Temperature 97.5 F L 12/11/19 10:00 Pulse Rate 71 12/11/19 10:00 Respiratory Rate 18 12/11/19 10:00 Blood Pressure 143/95 12/11/19 10:00 O2 Sat by Pulse Oximetry (%) Abnormal Lab Results 12/11/19 08:10 Anion Gap 6 L AST 75 H ALT 86 H 12/11/19 14:26 Laboratory Results - last 24 hr 12/11/19 08:10 Sodium 138 Potassium 3.8 Chloride 102 Carbon Dioxide 30 Anion Gap 6 L BUN 8.4 Creatinine 0.7 Est GFR (CKD-EPI)AfAm 128.43 Est GFR (CKD-EPI)NonAf 110.81 Random Glucose 95 Fasting Glucose 95 Calcium 9.4 Total Bilirubin 0.9 AST 75 H ALT 86 H Alkaline Phosphatase 59 Total Protein 7.6 Albumin 3.7 Assessment: 12/11/19 14:26 withdrawal symptom Plan: continue detox librium regimen
[2019-12-11] MEDS: THIAMINE HCL 100 MG TABLET (FP) PO SCH (22:50)
[2019-12-12] MEDS ORDERED: chlordiazePOXIDE HCL 10 MG CAPSULE PO PRN
[2019-12-12] MEDS: chlordiazePOXIDE HCL 10 MG CAPSULE PO SCH ×4 (06:32→22:17)
[2019-12-12] MEDS: NICOTINE 14 MG/24 HOURS TOPICAL PATCH TD SCH (10:38)
[2019-12-12] MEDS: amLODIPine BESYLATE 10 MG TABLET (FP) PO SCH (10:38)
[2019-12-12] MEDS: PRENATAL VITAMINS W/ FOLIC ACID TABLET (FP) PO SCH (10:38)
--- NOTE | 2019-12-12 11:43 | PN ---
S CIWA - CIWA Score Nausea/Vomitin-No Nausea/No Vomiting Muscle Tremors: 1-None Visible, but [place] Anxiety: 2 Agitation: 3 Paroxysmal Sweats: 1-Minimal Palms Moist Orientation: 0-Oriented Tacttile Disturbances: 0-None Auditory Disturbances: 0-None Visual Disturbances: 1-Very Mild Sensitivity Headache: 2-Mild CIWA-Ar Total Score: 10 BHS Progress Note (SOAP) Subjective: Patient is a 49 yo male with hx of alcohol dependence on librium protocol c/o of headache, interrupted slep, irritable, body aches Objective: 12/12/19 11:41 Vital Signs Temperature 98.1 F 12/12/19 10:00 Pulse Rate 77 12/12/19 10:00 Respiratory Rate 18 12/12/19 10:00 Blood Pressure 151/94 12/12/19 10:00 O2 Sat by Pulse Oximetry (%) Laboratory Last Values WBC 3.2 K/mm3 (4.0-10.0) L 12/09/19 11:10 RBC 3.83 M/mm3 (4.00-5.60) L 12/09/19 11:10 Hgb 12.5 GM/dL (11.7-16.9) 12/09/19 11:10 Hct 38.1 % (35.4-49) 12/09/19 11:10 MCV 99.5 fl (80-96) H 12/09/19 11:10 MCH 32.7 pg (25.7-33.7) 12/09/19 11:10 MCHC 32.8 g/dl (32.0-35.9) 12/09/19 11:10 RDW 13.4 % (11.9-15.9) D 12/09/19 11:10 Plt Count 207 K/MM3 (134-434) 12/09/19 11:10 MPV 8.6 fl (7.5-11.1) 12/09/19 11:10 Sodium 138 mmol/L (136-145) 12/11/19 08:10 Potassium 3.8 mmol/L (3.5-5.1) 12/11/19 08:10 Chloride 102 mmol/L (98-107) 12/11/19 08:10 Carbon Dioxide 30 mmol/L (21-32) 12/11/19 08:10 Anion Gap 6 MMOL/L (8-16) L 12/11/19 08:10 BUN 8.4 mg/dL (7-18) 12/11/19 08:10 Creatinine 0.7 mg/dL (0.55-1.3) 12/11/19 08:10 Est GFR (CKD-EPI)AfAm 128.43 12/11/19 08:10 Est GFR (CKD-EPI)NonAf 110.81 12/11/19 08:10 Random Glucose 95 mg/dL (74-106) 12/11/19 08:10 Fasting Glucose 95 mg/dL (74-106) 12/11/19 08:10 Calcium 9.4 mg/dL (8.5-10.1) 12/11/19 08:10 Total Bilirubin 0.9 mg/dL (0.2-1) 12/11/19 08:10 AST 75 U/L (15-37) H 12/11/19 08:10 ALT 86 U/L (13-61) H 12/11/19 08:10 Alkaline Phosphatase 59 U/L (45-117) 12/11/19 08:10 Total Protein 7.6 g/dl (6.4-8.2) 12/11/19 08:10 Albumin 3.7 g/dl (3.4-5.0) 12/11/19 08:10 RPR Titer Nonreactive (NONREACTIVE) 12/09/19 11:10 labs reviewe d Assessment: 12/12/19 11:41 Aox3 no acute distress EENT WNL Full ROM ambulating in the unit withdrawal sx Plan: increase fluids continue detox continue to monitor patient to follow up with primary care provider re: mild elevated LFTs d/t alcohol abuse
[2019-12-12] MEDS: THIAMINE HCL 100 MG TABLET (FP) PO SCH (22:17)
[2019-12-12] MEDS: MELATONIN 5 MG TABLETS PO PRN (22:18)
[2019-12-13] MEDS: chlordiazePOXIDE HCL 10 MG CAPSULE PO SCH ×2 (06:16→17:37)
[2019-12-13] MEDS: NICOTINE 14 MG/24 HOURS TOPICAL PATCH TD SCH (09:29)
[2019-12-13] MEDS: PRENATAL VITAMINS W/ FOLIC ACID TABLET (FP) PO SCH (09:29)
[2019-12-13] MEDS: amLODIPine BESYLATE 10 MG TABLET (FP) PO SCH (09:29)
[2019-12-13] MEDS ORDERED: P-EPHED 60MG/TRIPROLIDI 2.5MG TABLET PO PRN (09:48)
--- NOTE | 2019-12-13 11:36 | PN ---
S CIWA - CIWA Score Nausea/Vomitin-No Nausea/No Vomiting Muscle Tremors: 2 Anxiety: 1-Mildly Anxious Agitation: 1-Slight > Activity Paroxysmal Sweats: No Perspiration Orientation: 0-Oriented Tacttile Disturbances: 0-None Auditory Disturbances: 0-None Visual Disturbances: 0-None Headache: 0-None Present CIWA-Ar Total Score: 4 BHS Progress Note (SOAP) Subjective: running nose Objective: 12/13/19 11:35 Vital Signs Temperature 97.2 F L 12/13/19 09:32 Pulse Rate 71 12/13/19 09:32 Respiratory Rate 16 12/13/19 09:32 Blood Pressure 149/72 12/13/19 09:32 O2 Sat by Pulse Oximetry (%) aaox3 ambulating no acute distress Assessment: 12/13/19 11:35 mild withdrawals Plan: actifed prn d/c in am
[2019-12-13] MEDS: THIAMINE HCL 100 MG TABLET (FP) PO SCH (22:17)
[2019-12-13] MEDS: MELATONIN 5 MG TABLETS PO PRN (22:17)
[2019-12-14] MEDS ORDERED: chlordiazePOXIDE HCL 10 MG CAPSULE PO ONE (05:00)
[2019-12-14 09:30] VITALS: BP 142/100; PULSE 72; TEMP 97.5
--- NOTE | 2019-12-14 18:25 | DS ---
[facility] Detox Discharge Summary Admission Date: 12/09/19 Discharge Date: 12/14/19 - History Present History: Alcohol Dependence Additional Comments: PATIENT REFERRED TO [facility] [place] FOR AFTERCARE. PATIENT WAS DISCHARGED FROM DETOX UNIT IN STABLE MEDICAL CONDITION. Pertinent Past History: HTN, History of Depression and Anxiety. - Physical Exam Results Vital Signs: Vital Signs Temperature 97.5 F L 12/14/19 09:29 Pulse Rate 72 12/14/19 09:29 Respiratory Rate 16 12/14/19 09:29 Blood Pressure 142/100 12/14/19 09:29 O2 Sat by Pulse Oximetry (%) Pertinent Admission Physical Exam Findings: WITHDRAWAL SYMPTOMS. Laboratory Tests 12/09/19 12/09/19 12/09/19 11:10 11:10 11:10 WBC 3.2 L RBC 3.83 L Hgb 12.5 Hct 38.1 MCV 99.5 H MCH 32.7 MCHC 32.8 RDW 13.4 D Plt Count 207 MPV 8.6 Sodium 134 L Potassium 3.4 L Chloride 97 L Carbon Dioxide 33 H Anion Gap 4 L BUN 10.2 Creatinine 0.8 Est GFR (CKD-EPI)AfAm 121.57 Est GFR (CKD-EPI)NonAf 104.89 Random Glucose 122 H Fasting Glucose Calcium 9.2 Total Bilirubin 1.5 H AST 81 H ALT 92 H Alkaline Phosphatase 66 Total Protein 8.6 H Albumin 4.6 RPR Titer Nonreactive 12/11/19 08:10 WBC RBC Hgb Hct MCV MCH MCHC RDW Plt Count MPV Sodium 138 Potassium 3.8 Chloride 102 Carbon Dioxide 30 Anion Gap 6 L BUN 8.4 Creatinine 0.7 Est GFR (CKD-EPI)AfAm 128.43 Est GFR (CKD-EPI)NonAf 110.81 Random Glucose 95 Fasting Glucose 95 Calcium 9.4 Total Bilirubin 0.9 AST 75 H ALT 86 H Alkaline Phosphatase 59 Total Protein 7.6 Albumin 3.7 RPR Titer LABS NOTED. - Treatment Hospital Course: Detox Protocol Followed, Detoxed Safely, Responded well, Discharged Condition Good Patient has Accepted a Rehab Referral to: PT. REFERRED TO [facility] [place] FOR AFTERCARE. - Medication Discharge Medications: Ambulatory Orders Amlodipine Besylate [Norvasc -] 10 mg PO DAILY 30 Days #30 tablet 06/24/19 - Diagnosis (1) Essential hypertension Status: Active (2) Alcohol dependence with uncomplicated withdrawal Status: Acute - AMA Did Patient Leave Against Medical Advice: No
== END 2019-12-14 09:06 | disposition home or self-care (01) | DRG 775 ==
LOC: YASAS 09:45 → Y6N 11:19
PROVIDERS: ADMIT Allergy & Immunology; ATTEND Allergy & Immunology
PROC: HZ2ZZZZ Detoxification Services for Substance Abuse Treatment (ICD-10-PCS; principal; 2019-12-09)
DX: F10.230 Alcohol dependence with withdrawal, uncomplicated (principal); I10 Essential (primary) hypertension; Z91.14 Patient's other noncompliance with medication regimen
CPT/HCPCS: 36415; 80053; 82947; 85027; 86593; J0735

== ENCOUNTER 2021-09-09 15:39 | Inpatient (IN) | payer OTHER ==
[2021-09-09 17:00] VITALS: BMI 23.6
[2021-09-09] MEDS ORDERED: ACETAMINOPHEN 325 MG TABLET (FP) PO PRN ×2 (17:26)
[2021-09-09] MEDS ORDERED: BISMUTH SUBSALICYLATE 524 MG/30 ML PO PRN (17:26)
[2021-09-09] MEDS ORDERED: MAGNESIUM HYDROX 2400MG/30ML ORAL SUSPENSION 30 ML CUP PO PRN (17:26)
[2021-09-09] MEDS ORDERED: MAG HYDROX/AL HYDROX/SIMETH 30 ML UNIT-DOSE CUP PO PRN (17:26)
[2021-09-09] MEDS ORDERED: MENTHOL/PHENOL 1 EACH UD MM PRN (17:26)
[2021-09-09] MEDS ORDERED: IBUPROFEN 400 MG TABLET (FP) PO PRN (17:26)
[2021-09-09] MEDS ORDERED: MAGNESIUM CITRATE 300 ML BOTTLE PO PRN (17:26)
[2021-09-09] MEDS ORDERED: ONDANSETRON *ODT* 4 MG TABLET SL PRN (17:26)
[2021-09-10] MEDS: PRENATAL VITAMINS W/ FOLIC ACID TABLET (FP) PO SCH ×2 (00:46→10:28)
[2021-09-10] MEDS: hydrOXYzine PAMOATE 25 MG CAPSULE (FP) PO SCH ×7 (00:46→22:05)
[2021-09-10] MEDS ORDERED: hydrOXYzine PAMOATE 25 MG CAPSULE (FP) PO ONE ×3 (00:49→09:47)
[2021-09-10] MEDS: MELATONIN 5 MG TABLETS PO SCH ×2 (01:01→22:05)
[2021-09-10] MEDS: THIAMINE HCL 100 MG TABLET (FP) PO SCH ×2 (01:01→22:05)
[2021-09-10] MEDS ORDERED: diazePAM 5 MG TABLET PO PRN (08:44)
[2021-09-10] MEDS ORDERED: amLODIPine BESYLATE 5 MG TABLET (FP) PO SCH (10:00)
[2021-09-10 10:32] LABS: HEMATOCRIT 35.4 % (35.4-49); HEMOGLOBIN 11.9 GM/dL (11.7-16.9); MCH 34.2 pg (25.7-33.7); MCHC 33.7 g/dl (32.0-35.9); MEAN CELL VOLUME 101.4 fl (80-96); MEAN PLT VOLUME 8.5 fl (7.5-11.1); PLATELET COUNT 226 10^3/uL (134-434); RBC 3.49 M/mm3 (4.00-5.60); RDW 13.9 % (11.9-15.9); WHITE BLOOD COUNT 3.7 K/mm3 (4.0-10.0)
[2021-09-10] MEDS: diazePAM 5 MG TABLET PO SCH ×3 (10:42→22:05)
[2021-09-10 12:27] LABS: ALBUMIN 3.5 g/dl (3.4-5.0); BLOOD UREA NITROGEN 11.9 mg/dL (7-18); CALCIUM 8.6 mg/dL (8.5-10.1)
[2021-09-10 12:29] LABS: BILIRUBIN,TOTAL 0.9 mg/dL (0.2-1); TOT PROT 7.4 g/dl (6.4-8.2)
[2021-09-10 12:30] LABS: CREATININE 0.7 mg/dL (0.55-1.3)
[2021-09-11] MEDS: diazePAM 5 MG TABLET PO SCH ×3 (06:33→17:37)
[2021-09-11] MEDS: hydrOXYzine PAMOATE 25 MG CAPSULE (FP) PO SCH ×5 (06:33→22:35)
[2021-09-11] MEDS: amLODIPine BESYLATE 10 MG TABLET (FP) PO SCH (10:39)
[2021-09-11] MEDS: PRENATAL VITAMINS W/ FOLIC ACID TABLET (FP) PO SCH (10:39)
[2021-09-11] MEDS: METHOCARBAMOL 500 MG TABLET PO PRN (18:16)
[2021-09-11] MEDS: MELATONIN 5 MG TABLETS PO SCH (22:35)
[2021-09-11] MEDS: THIAMINE HCL 100 MG TABLET (FP) PO SCH (22:35)
[2021-09-12] MEDS: diazePAM 5 MG TABLET PO SCH ×4 (01:39→22:36)
[2021-09-12] MEDS: hydrOXYzine PAMOATE 25 MG CAPSULE (FP) PO SCH ×5 (06:17→22:36)
[2021-09-12] MEDS: amLODIPine BESYLATE 10 MG TABLET (FP) PO SCH (10:30)
[2021-09-12] MEDS: PRENATAL VITAMINS W/ FOLIC ACID TABLET (FP) PO SCH (10:30)
[2021-09-12] MEDS: THIAMINE HCL 100 MG TABLET (FP) PO SCH (22:36)
[2021-09-12] MEDS: MELATONIN 5 MG TABLETS PO SCH (22:36)
[2021-09-13] MEDS: diazePAM 5 MG TABLET PO SCH ×2 (07:01→18:01)
[2021-09-13] MEDS: hydrOXYzine PAMOATE 25 MG CAPSULE (FP) PO SCH ×5 (07:02→22:44)
[2021-09-13] MEDS: amLODIPine BESYLATE 10 MG TABLET (FP) PO SCH (10:41)
[2021-09-13] MEDS: PRENATAL VITAMINS W/ FOLIC ACID TABLET (FP) PO SCH (10:41)
[2021-09-13] MEDS: MELATONIN 5 MG TABLETS PO SCH (22:44)
[2021-09-13] MEDS: METHOCARBAMOL 500 MG TABLET PO PRN (22:44)
[2021-09-13] MEDS: THIAMINE HCL 100 MG TABLET (FP) PO SCH (22:44)
[2021-09-14] MEDS: hydrOXYzine PAMOATE 25 MG CAPSULE (FP) PO SCH ×2 (05:55→10:44)
[2021-09-14] MEDS ORDERED: diazePAM 5 MG TABLET PO ONE (06:00)
[2021-09-14 09:42] VITALS: BP 136/95; PULSE 90; TEMP 96.8
[2021-09-14] MEDS: amLODIPine BESYLATE 10 MG TABLET (FP) PO SCH (10:44)
[2021-09-14] MEDS: PRENATAL VITAMINS W/ FOLIC ACID TABLET (FP) PO SCH (10:45)
== END 2021-09-14 13:03 | disposition home or self-care (01) | DRG 775 ==
LOC: YASAS 15:39 → Y3N 09-10 11:45
PROVIDERS: ADMIT Allergy & Immunology; ATTEND Allergy & Immunology
PROC: HZ2ZZZZ Detoxification Services for Substance Abuse Treatment (ICD-10-PCS; principal; 2021-09-10)
DX: F10.230 Alcohol dependence with withdrawal, uncomplicated (principal); F10.220 Alcohol dependence with intoxication, uncomplicated; F41.9 Anxiety disorder, unspecified; F32.9 Major depressive disorder, single episode, unspecified; I10 Essential (primary) hypertension; Z56.0 Unemployment, unspecified
CPT/HCPCS: 36415; 80053; 85027; 86780; C9803; U0003; U0005

== ENCOUNTER 2022-09-28 14:42 | Inpatient (IN) | payer OTHER ==
[2022-09-28 15:27] VITALS: BMI 23.1
[2022-09-28] MEDS ORDERED: MAG HYDROX/AL HYDROX/SIMETH 30 ML UNIT-DOSE CUP PO PRN (17:43)
[2022-09-28] MEDS ORDERED: IBUPROFEN 600 MG TABLET (FP) PO PRN (17:43)
[2022-09-28] MEDS ORDERED: ACETAMINOPHEN 325 MG TABLET (FP) PO PRN ×2 (17:43)
[2022-09-28] MEDS ORDERED: IBUPROFEN 400 MG TABLET (FP) PO PRN (17:43)
[2022-09-28] MEDS ORDERED: NALOXONE HCL (KLOXXADO) 8 MG SPRAY NS PRN (17:43)
[2022-09-28] MEDS ORDERED: DICYCLOMINE HCL 10 MG CAPSULE PO PRN (17:43)
[2022-09-28] MEDS ORDERED: MAGNESIUM HYDROX 2400MG/30ML ORAL SUSPENSION 30 ML CUP PO PRN (17:43)
[2022-09-28] MEDS ORDERED: ONDANSETRON *ODT* 4 MG TABLET SL PRN (17:43)
[2022-09-28] MEDS ORDERED: BISMUTH SUBSALICYLATE 524 MG/30 ML PO PRN (17:43)
[2022-09-28] MEDS ORDERED: LOPERAMIDE HCL 2 MG CAPSULE PO PRN (17:43)
[2022-09-28] MEDS ORDERED: NICOTINE 10 MG CARTRIDGE (INHALER) IH PRN (17:43)
[2022-09-28] MEDS ORDERED: MAGNESIUM CITRATE 300 ML BOTTLE PO PRN (17:43)
[2022-09-28] MEDS ORDERED: BENZOCAINE/MENTHOL (CHLORASEPTIC ) LOZENGE MM PRN (17:43)
[2022-09-28] MEDS ORDERED: diazePAM 5 MG TABLET PO PRN (21:16)
[2022-09-28] MEDS: diazePAM 5 MG TABLET PO SCH (22:48)
[2022-09-28] MEDS: THIAMINE HCL 100 MG TABLET (FP) PO SCH (22:48)
[2022-09-28] MEDS: MELATONIN 5 MG TABLETS PO SCH (22:48)
[2022-09-29] MEDS: diazePAM 5 MG TABLET PO SCH ×4 (05:54→23:31)
[2022-09-29] MEDS: METHOCARBAMOL 500 MG TABLET PO PRN ×2 (10:08→23:31)
[2022-09-29] MEDS: amLODIPine BESYLATE 10 MG TABLET (FP) PO SCH (10:08)
[2022-09-29] MEDS: PRENATAL VITAMINS W/ FOLIC ACID TABLET (FP) PO SCH (10:09)
[2022-09-29 11:15] LABS: HEMATOCRIT 37.6 % (35.4-49); HEMOGLOBIN 12.6 GM/dL (11.7-16.9); MCH 33.4 pg (25.7-33.7); MCHC 33.4 g/dl (32.0-35.9); MEAN PLT VOLUME 8.7 fl (7.5-11.1); PLATELET COUNT 166 10^3/uL (134-434); RBC 3.76 M/mm3 (4.00-5.60); RDW 14.1 % (11.9-15.9); WHITE BLOOD COUNT 4.8 K/mm3 (4.0-10.0)
[2022-09-29 11:22] LABS: ALBUMIN 3.8 g/dl (3.4-5.0); BLOOD UREA NITROGEN 9.2 mg/dL (7-18); CALCIUM 8.9 mg/dL (8.5-10.1)
[2022-09-29 11:26] LABS: CREATININE 0.6 mg/dL (0.55-1.3)
[2022-09-29 11:28] LABS: BILIRUBIN,TOTAL 1.4 mg/dL (0.2-1); TOT PROT 7.8 g/dl (6.4-8.2)
[2022-09-29] MEDS ORDERED: POTASSIUM CHLORIDE ORAL LIQUID 20 MEQ/15 ML PO ONE (12:30)
[2022-09-29] MEDS: MELATONIN 5 MG TABLETS PO SCH (23:31)
[2022-09-29] MEDS: THIAMINE HCL 100 MG TABLET (FP) PO SCH (23:31)
[2022-09-30] MEDS: hydrOXYzine PAMOATE 25 MG CAPSULE (FP) PO PRN (05:53)
[2022-09-30] MEDS: diazePAM 5 MG TABLET PO SCH ×3 (05:53→23:21)
[2022-09-30] MEDS: METHOCARBAMOL 500 MG TABLET PO PRN (05:54)
[2022-09-30] MEDS: amLODIPine BESYLATE 10 MG TABLET (FP) PO SCH (09:50)
[2022-09-30] MEDS: PRENATAL VITAMINS W/ FOLIC ACID TABLET (FP) PO SCH (09:50)
[2022-09-30 12:52] LABS: CALCIUM 9.7 mg/dL (8.5-10.1)
[2022-09-30 12:53] LABS: ALBUMIN 4.3 g/dl (3.4-5.0); BLOOD UREA NITROGEN 7.4 mg/dL (7-18)
[2022-09-30 12:57] LABS: BILIRUBIN,TOTAL 2.2 mg/dL (0.2-1)
[2022-09-30 12:59] LABS: TOT PROT 8.8 g/dl (6.4-8.2)
[2022-09-30] MEDS: THIAMINE HCL 100 MG TABLET (FP) PO SCH (23:22)
[2022-09-30] MEDS: MELATONIN 5 MG TABLETS PO SCH (23:22)
[2022-10-01] MEDS: diazePAM 5 MG TABLET PO SCH ×2 (05:22→18:15)
[2022-10-01] MEDS: METHOCARBAMOL 500 MG TABLET PO PRN (05:25)
[2022-10-01] MEDS ORDERED: POTASSIUM CHLORIDE TABS 20 MEQ TABLET.ER (FP) PO ONE ×3 (08:17→15:00)
[2022-10-01] MEDS: amLODIPine BESYLATE 10 MG TABLET (FP) PO SCH (10:37)
[2022-10-01] MEDS: hydrOXYzine PAMOATE 25 MG CAPSULE (FP) PO PRN (10:37)
[2022-10-01] MEDS: PRENATAL VITAMINS W/ FOLIC ACID TABLET (FP) PO SCH (10:37)
[2022-10-01] MEDS: THIAMINE HCL 100 MG TABLET (FP) PO SCH (23:24)
[2022-10-01] MEDS: MELATONIN 5 MG TABLETS PO SCH (23:24)
[2022-10-02] MEDS ORDERED: diazePAM 5 MG TABLET PO ONE (06:00)
[2022-10-02 06:05] VITALS: RESP 18
[2022-10-02] MEDS: METHOCARBAMOL 500 MG TABLET PO PRN (06:24)
[2022-10-02 09:18] VITALS: BP 147/97; PULSE 85; TEMP 97.8
[2022-10-02] MEDS: amLODIPine BESYLATE 10 MG TABLET (FP) PO SCH (10:11)
[2022-10-02] MEDS: PRENATAL VITAMINS W/ FOLIC ACID TABLET (FP) PO SCH (10:11)
== END 2022-10-02 08:55 | disposition home or self-care (01) | DRG 775 ==
LOC: YASAS 14:42 → Y3N 18:02
PROVIDERS: ADMIT Allergy & Immunology; ATTEND Surgery
PROC: HZ2ZZZZ Detoxification Services for Substance Abuse Treatment (ICD-10-PCS; principal; 2022-09-28)
DX: F10.230 Alcohol dependence with withdrawal, uncomplicated (principal); E87.6 Hypokalemia; G40.909 Epilepsy, unspecified, not intractable, without status epilepticus; I10 Essential (primary) hypertension
CPT/HCPCS: 36415; 80053; 84132; 85027; 86780; C9803-CS; U0003; U0005

== ENCOUNTER 2022-11-30 12:52 | Inpatient (IN) | payer OTHER ==
[2022-11-30 14:57] VITALS: BMI 23.1
[2022-11-30] MEDS ORDERED: LOPERAMIDE HCL 2 MG CAPSULE PO PRN (16:26)
[2022-11-30] MEDS ORDERED: guaiFENesin 200 MG/10 ML 10 ML UNIT-DOSE CUPS PO PRN (16:26)
[2022-11-30] MEDS ORDERED: BISMUTH SUBSALICYLATE 524 MG/30 ML PO PRN (16:26)
[2022-11-30] MEDS ORDERED: DICYCLOMINE HCL 10 MG CAPSULE PO PRN (16:26)
[2022-11-30] MEDS ORDERED: hydrOXYzine PAMOATE 25 MG CAPSULE (FP) PO PRN (16:26)
[2022-11-30] MEDS ORDERED: ONDANSETRON *ODT* 4 MG TABLET SL PRN (16:26)
[2022-11-30] MEDS ORDERED: POLYETHYLENE GLYCOL (HEALTHYLAX) 3350 17 GM PACKET PO PRN (16:26)
[2022-11-30] MEDS ORDERED: P-EPHED 60MG/TRIPROLIDI 2.5MG TABLET PO PRN (16:26)
[2022-11-30] MEDS ORDERED: BENZOCAINE/MENTHOL (CHLORASEPTIC ) LOZENGE MM PRN (16:26)
[2022-11-30] MEDS ORDERED: ACETAMINOPHEN 325 MG TABLET (FP) PO PRN ×2 (16:26)
[2022-11-30] MEDS ORDERED: MAGNESIUM HYDROX 2400MG/30ML ORAL SUSPENSION 30 ML CUP PO PRN (16:26)
[2022-11-30] MEDS ORDERED: MAG HYDROX/AL HYDROX/SIMETH 30 ML UNIT-DOSE CUP PO PRN (16:26)
[2022-11-30] MEDS ORDERED: LIDOCAINE 5% TOPICAL PATCH TP SCH (16:45)
[2022-11-30] MEDS ORDERED: LORazepam 1 MG TABLET PO PRN (16:52)
[2022-11-30] MEDS: LIDOCAINE 5% TOPICAL PATCH TP SCH (18:28)
[2022-11-30] MEDS: THIAMINE HCL 100 MG TABLET (FP) PO SCH (22:51)
[2022-11-30] MEDS: MELATONIN 5 MG TABLETS PO SCH (22:51)
[2022-11-30] MEDS: LORazepam 2 MG TABLET PO SCH (22:51)
[2022-11-30] MEDS: LIDOCAINE PATCH REMOVAL MC SCH (22:52)
[2022-12-01] MEDS: LORazepam 2 MG TABLET PO SCH ×5 (05:52→22:51)
[2022-12-01] MEDS: amLODIPine BESYLATE 5 MG TABLET (FP) PO SCH (10:24)
[2022-12-01] MEDS: PRENATAL VITAMINS W/ FOLIC ACID TABLET (FP) PO SCH (10:24)
[2022-12-01 10:45] LABS: HEMATOCRIT 29.7 % (35.4-49); HEMOGLOBIN 9.5 GM/dL (11.7-16.9); MCH 28.6 pg (25.7-33.7); MCHC 32.1 g/dl (32.0-35.9); MEAN PLT VOLUME 8.6 fl (7.5-11.1); PLATELET COUNT 176 10^3/uL (134-434); RBC 3.33 M/mm3 (4.00-5.60); RDW 17.8 % (11.9-15.9); WHITE BLOOD COUNT 3.4 K/mm3 (4.0-10.0)
[2022-12-01 10:49] LABS: CHLORIDE 92 mmol/L (98-107); SODIUM 139 mmol/L (136-145)
[2022-12-01 10:56] LABS: INR 1.05 (0.83-1.09); PROTHROMBIN TIME (PATIENT) 12.1 SEC (9.7-13.0)
[2022-12-01 10:58] LABS: ACTIVATED PTT 33.9 SECONDS (25.2-36.5); BLOOD UREA NITROGEN 9.5 mg/dL (7-18); CALCIUM 8.8 mg/dL (8.5-10.1)
[2022-12-01 10:59] LABS: ALBUMIN 3.4 g/dl (3.4-5.0); CO2 37 mmol/L (21-32); GLUCOSE,RANDOM 94 mg/dL (74-106)
[2022-12-01 11:01] LABS: CREATININE 0.7 mg/dL (0.55-1.3)
[2022-12-01 11:02] LABS: SGOT/AST 63 U/L (15-37)
[2022-12-01 11:03] LABS: BILIRUBIN,TOTAL 0.8 mg/dL (0.2-1)
[2022-12-01 11:04] LABS: SGPT/ALT 50 U/L (13-61)
[2022-12-01] MEDS: LIDOCAINE 5% TOPICAL PATCH TP SCH (11:04)
[2022-12-01 11:05] LABS: ALK PHOS 51 U/L (45-117)
[2022-12-01 11:36] LABS: ANION GAP 10 MMOL/L (8-16)
[2022-12-01] MEDS ORDERED: POTASSIUM CHLORIDE ORAL LIQUID 20 MEQ/15 ML PO SCH ×3 (14:16→22:00)
[2022-12-01] MEDS: POTASSIUM CHLORIDE ORAL LIQUID 20 MEQ/15 ML PO SCH (22:49)
[2022-12-01] MEDS: THIAMINE HCL 100 MG TABLET (FP) PO SCH (22:50)
[2022-12-01] MEDS: MELATONIN 5 MG TABLETS PO SCH (22:50)
[2022-12-01] MEDS: IBUPROFEN 400 MG TABLET (FP) PO PRN (22:53)
[2022-12-01] MEDS: LIDOCAINE PATCH REMOVAL MC SCH (22:56)
[2022-12-02] MEDS: LORazepam 1 MG TABLET PO SCH ×4 (06:23→22:17)
[2022-12-02] MEDS: amLODIPine BESYLATE 5 MG TABLET (FP) PO SCH (10:47)
[2022-12-02] MEDS: LIDOCAINE 5% TOPICAL PATCH TP SCH (10:47)
[2022-12-02] MEDS: POTASSIUM CHLORIDE ORAL LIQUID 20 MEQ/15 ML PO SCH ×2 (10:47→22:16)
[2022-12-02] MEDS: PRENATAL VITAMINS W/ FOLIC ACID TABLET (FP) PO SCH (10:47)
[2022-12-02] MEDS ORDERED: cloNIDine HCL 0.1 MG TABLET PO ONE (13:45)
[2022-12-02] MEDS ORDERED: cloNIDine HCL 0.1 MG TABLET PO PRN (22:00)
[2022-12-02] MEDS: MELATONIN 5 MG TABLETS PO SCH (22:16)
[2022-12-02] MEDS: THIAMINE HCL 100 MG TABLET (FP) PO SCH (22:17)
[2022-12-02] MEDS: LIDOCAINE PATCH REMOVAL MC SCH (22:18)
[2022-12-03] MEDS ORDERED: LORazepam 0.5 MG TABLET PO PRN
[2022-12-03] MEDS: LORazepam 0.5 MG TABLET PO SCH ×4 (07:16→23:27)
[2022-12-03] MEDS ORDERED: POTASSIUM CHLORIDE ORAL LIQUID 20 MEQ/15 ML PO ONE ×2 (09:30→15:00)
[2022-12-03] MEDS: LIDOCAINE 5% TOPICAL PATCH TP SCH (09:35)
[2022-12-03] MEDS: PRENATAL VITAMINS W/ FOLIC ACID TABLET (FP) PO SCH (09:35)
[2022-12-03] MEDS: amLODIPine BESYLATE 5 MG TABLET (FP) PO SCH (09:35)
[2022-12-03] MEDS: THIAMINE HCL 100 MG TABLET (FP) PO SCH (23:23)
[2022-12-03] MEDS: MELATONIN 5 MG TABLETS PO SCH (23:24)
[2022-12-03] MEDS: IBUPROFEN 400 MG TABLET (FP) PO PRN (23:26)
[2022-12-03] MEDS: LIDOCAINE PATCH REMOVAL MC SCH (23:29)
[2022-12-04] MEDS ORDERED: LORazepam 0.5 MG TABLET PO ONE (05:00)
[2022-12-04 09:40] VITALS: RESP 18
[2022-12-04] MEDS: amLODIPine BESYLATE 5 MG TABLET (FP) PO SCH (10:30)
[2022-12-04] MEDS: LIDOCAINE 5% TOPICAL PATCH TP SCH (10:30)
[2022-12-04] MEDS: PRENATAL VITAMINS W/ FOLIC ACID TABLET (FP) PO SCH (10:30)
[2022-12-04] MEDS ORDERED: POTASSIUM CHLORIDE ORAL LIQUID 20 MEQ/15 ML PO ONE (11:02)
[2022-12-04 14:02] VITALS: BP 132/75; PULSE 96; TEMP 97.1
== END 2022-12-04 15:33 | disposition home or self-care (01) | DRG 425 ==
LOC: YASAS 12:52 → Y3N 16:55
PROVIDERS: ADMIT Allergy & Immunology; ATTEND Surgery
PROC: HZ2ZZZZ Detoxification Services for Substance Abuse Treatment (ICD-10-PCS; principal; 2022-11-30)
DX: E87.6 Hypokalemia (principal); I10 Essential (primary) hypertension; G40.909 Epilepsy, unspecified, not intractable, without status epilepticus; M25.50 Pain in unspecified joint; R79.89 Other specified abnormal findings of blood chemistry; Z96.0 Presence of urogenital implants
CPT/HCPCS: 36415; 80053; 82140; 82607; 82746; 84132; 85027; 85610; 85730; 86780; C9803-CS; U0003; U0005

== ENCOUNTER 2023-03-28 13:40 | Inpatient (IN) | payer OTHER ==
[2023-03-28 14:17] VITALS: BMI 23.7
[2023-03-28] MEDS ORDERED: MAG HYDROX/AL HYDROX/SIMETH 30 ML UNIT-DOSE CUP PO PRN (15:19)
[2023-03-28] MEDS ORDERED: BENZOCAINE/MENTHOL (CHLORASEPTIC ) LOZENGE MM PRN (15:19)
[2023-03-28] MEDS ORDERED: NALOXONE HCL 0.4 MG/ML VIAL IM PRN (15:19)
[2023-03-28] MEDS ORDERED: BENZONATATE 200 MG CAPSULE PO PRN (15:19)
[2023-03-28] MEDS ORDERED: POLYETHYLENE GLYCOL (HEALTHYLAX) 3350 17 GM PACKET PO PRN (15:19)
[2023-03-28] MEDS ORDERED: IBUPROFEN 400 MG TABLET (FP) PO PRN (15:19)
[2023-03-28] MEDS ORDERED: NALOXONE HCL (KLOXXADO) 8 MG SPRAY NS PRN (15:19)
[2023-03-28] MEDS ORDERED: BISMUTH SUBSALICYLATE 524 MG/30 ML PO PRN (15:19)
[2023-03-28] MEDS ORDERED: guaiFENesin 600 MG TABLET.ER (FP) PO PRN (15:19)
[2023-03-28] MEDS ORDERED: ONDANSETRON *ODT* 4 MG TABLET SL PRN (15:19)
[2023-03-28] MEDS ORDERED: ACETAMINOPHEN 325 MG TABLET (FP) PO PRN (15:19)
[2023-03-28] MEDS ORDERED: hydrOXYzine PAMOATE 25 MG CAPSULE (FP) PO PRN (15:19)
[2023-03-28] MEDS ORDERED: LOPERAMIDE HCL 2 MG CAPSULE PO PRN (15:19)
[2023-03-28] MEDS ORDERED: DICYCLOMINE HCL 10 MG CAPSULE PO PRN (15:19)
[2023-03-28] MEDS ORDERED: chlordiazePOXIDE HCL 25 MG CAPSULE PO PRN (15:19)
[2023-03-28] MEDS ORDERED: MAGNESIUM HYDROX 2400MG/30ML ORAL SUSPENSION 30 ML CUP PO PRN (15:19)
[2023-03-28] MEDS: THIAMINE HCL 100 MG TABLET (FP) PO SCH (22:45)
[2023-03-28] MEDS: chlordiazePOXIDE HCL 25 MG CAPSULE PO SCH (22:45)
[2023-03-28] MEDS: MELATONIN 5 MG TABLETS PO SCH (22:45)
[2023-03-28] MEDS: PRENATAL VITAMINS W/ FOLIC ACID TABLET (FP) PO SCH (22:54)
[2023-03-29] MEDS: chlordiazePOXIDE HCL 25 MG CAPSULE PO SCH ×4 (05:39→22:26)
[2023-03-29] MEDS: PRENATAL VITAMINS W/ FOLIC ACID TABLET (FP) PO SCH (10:04)
[2023-03-29 10:42] LABS: HEMOGLOBIN 10.4 GM/dL (11.7-16.9); MCH 29.4 pg (25.7-33.7); MCHC 33.5 g/dl (32.0-35.9); MEAN CELL VOLUME 87.8 fl (80-96); MEAN PLT VOLUME 8.6 fl (7.5-11.1); PLATELET COUNT 153 10^3/uL (134-434); RBC 3.53 M/mm3 (4.00-5.60); RDW 20.2 % (11.9-15.9); WHITE BLOOD COUNT 3.6 K/mm3 (4.0-10.0)
[2023-03-29] MEDS: amLODIPine BESYLATE 10 MG TABLET (FP) PO SCH (10:47)
[2023-03-29 10:51] LABS: CHLORIDE 94 mmol/L (98-107); SODIUM 137 mmol/L (136-145)
[2023-03-29 10:58] LABS: ALBUMIN 3.5 g/dl (3.4-5.0); BLOOD UREA NITROGEN 5.9 mg/dL (7-18); CALCIUM 8.8 mg/dL (8.5-10.1); CO2 35 mmol/L (21-32); GLUCOSE,RANDOM 113 mg/dL (74-106)
[2023-03-29 11:01] LABS: CREATININE 0.7 mg/dL (0.55-1.3); SGOT/AST 45 U/L (15-37); SGPT/ALT 42 U/L (13-61)
[2023-03-29 11:02] LABS: BILIRUBIN,TOTAL 0.8 mg/dL (0.2-1); TOT PROT 7.6 g/dl (6.4-8.2)
[2023-03-29 11:03] LABS: ALK PHOS 64 U/L (45-117)
[2023-03-29 11:09] LABS: ANION GAP 8 MMOL/L (8-16); POTASSIUM 2.9 mmol/L (3.5-5.1)
[2023-03-29] MEDS: POTASSIUM CHLORIDE ORAL LIQUID 20 MEQ/15 ML PO SCH ×2 (13:03→22:26)
[2023-03-29] MEDS: LACTULOSE 20 GM/30 ML UDC (FOR ORAL USE ONLY) PO SCH ×2 (13:46→22:26)
[2023-03-29] MEDS ORDERED: cloNIDine HCL 0.1 MG TABLET PO ONE (15:00)
[2023-03-29] MEDS: THIAMINE HCL 100 MG TABLET (FP) PO SCH (22:26)
[2023-03-29] MEDS: MELATONIN 5 MG TABLETS PO SCH (22:30)
[2023-03-30] MEDS: chlordiazePOXIDE HCL 25 MG CAPSULE PO SCH ×4 (06:00→22:49)
[2023-03-30] MEDS: LACTULOSE 20 GM/30 ML UDC (FOR ORAL USE ONLY) PO SCH ×3 (06:14→22:52)
[2023-03-30] MEDS ORDERED: POTASSIUM CHLORIDE TABS 20 MEQ TABLET.ER (FP) PO ONE ×2 (07:22→11:57)
[2023-03-30] MEDS: PRENATAL VITAMINS W/ FOLIC ACID TABLET (FP) PO SCH (10:40)
[2023-03-30] MEDS: amLODIPine BESYLATE 10 MG TABLET (FP) PO SCH (10:40)
[2023-03-30] MEDS: LIDOCAINE 5% TOPICAL PATCH TP SCH (10:41)
[2023-03-30 11:38] LABS: POTASSIUM 2.9 mmol/L (3.5-5.1)
[2023-03-30] MEDS: POTASSIUM CHLORIDE ORAL LIQUID 20 MEQ/15 ML PO SCH ×2 (13:49→22:49)
[2023-03-30] MEDS: THIAMINE HCL 100 MG TABLET (FP) PO SCH (22:49)
[2023-03-30] MEDS: MELATONIN 5 MG TABLETS PO SCH (22:51)
[2023-03-30] MEDS: LIDOCAINE PATCH REMOVAL MC SCH (22:52)
[2023-03-31] MEDS ORDERED: chlordiazePOXIDE HCL 10 MG CAPSULE PO PRN
[2023-03-31] MEDS: chlordiazePOXIDE HCL 10 MG CAPSULE PO SCH ×5 (05:43→22:33)
[2023-03-31] MEDS: METHOCARBAMOL 500 MG TABLET PO PRN (05:45)
[2023-03-31] MEDS: LACTULOSE 20 GM/30 ML UDC (FOR ORAL USE ONLY) PO SCH ×3 (05:45→23:17)
[2023-03-31] MEDS: IBUPROFEN 600 MG TABLET (FP) PO PRN (05:45)
[2023-03-31] MEDS: POTASSIUM CHLORIDE ORAL LIQUID 20 MEQ/15 ML PO SCH ×2 (10:43→22:32)
[2023-03-31] MEDS: PRENATAL VITAMINS W/ FOLIC ACID TABLET (FP) PO SCH (10:43)
[2023-03-31] MEDS: amLODIPine BESYLATE 10 MG TABLET (FP) PO SCH (10:44)
[2023-03-31] MEDS: LIDOCAINE 5% TOPICAL PATCH TP SCH (10:44)
[2023-03-31 11:50] LABS: POTASSIUM 3.9 mmol/L (3.5-5.1)
[2023-03-31 11:51] LABS: CALCIUM 8.9 mg/dL (8.5-10.1)
[2023-03-31 11:52] LABS: ALBUMIN 3.4 g/dl (3.4-5.0); BLOOD UREA NITROGEN 7.3 mg/dL (7-18)
[2023-03-31 11:55] LABS: CREATININE 0.7 mg/dL (0.55-1.3)
[2023-03-31 11:56] LABS: BILIRUBIN,TOTAL 0.6 mg/dL (0.2-1)
[2023-03-31] MEDS: MELATONIN 5 MG TABLETS PO SCH (22:33)
[2023-03-31] MEDS: THIAMINE HCL 100 MG TABLET (FP) PO SCH (22:33)
[2023-03-31] MEDS: LIDOCAINE PATCH REMOVAL MC SCH (22:34)
[2023-04-01] MEDS: chlordiazePOXIDE HCL 10 MG CAPSULE PO SCH ×2 (05:28→17:56)
[2023-04-01] MEDS: LACTULOSE 20 GM/30 ML UDC (FOR ORAL USE ONLY) PO SCH ×3 (05:28→22:26)
[2023-04-01] MEDS: IBUPROFEN 600 MG TABLET (FP) PO PRN (05:29)
[2023-04-01] MEDS: METHOCARBAMOL 500 MG TABLET PO PRN (05:29)
[2023-04-01] MEDS: PRENATAL VITAMINS W/ FOLIC ACID TABLET (FP) PO SCH (10:07)
[2023-04-01] MEDS: POTASSIUM CHLORIDE ORAL LIQUID 20 MEQ/15 ML PO SCH (10:08)
[2023-04-01] MEDS: LIDOCAINE 5% TOPICAL PATCH TP SCH (10:09)
[2023-04-01] MEDS: amLODIPine BESYLATE 10 MG TABLET (FP) PO SCH (10:09)
[2023-04-01] MEDS: THIAMINE HCL 100 MG TABLET (FP) PO SCH (22:26)
[2023-04-01] MEDS: MELATONIN 5 MG TABLETS PO SCH (22:26)
[2023-04-01] MEDS: LIDOCAINE PATCH REMOVAL MC SCH (22:26)
[2023-04-02] MEDS ORDERED: chlordiazePOXIDE HCL 10 MG CAPSULE PO ONE (05:00)
[2023-04-02] MEDS: LACTULOSE 20 GM/30 ML UDC (FOR ORAL USE ONLY) PO SCH (06:05)
[2023-04-02 09:21] VITALS: BP 139/83; PULSE 100; RESP 20; TEMP 96.9
[2023-04-02] MEDS: PRENATAL VITAMINS W/ FOLIC ACID TABLET (FP) PO SCH (09:55)
[2023-04-02] MEDS: LIDOCAINE 5% TOPICAL PATCH TP SCH (09:55)
[2023-04-02] MEDS: amLODIPine BESYLATE 10 MG TABLET (FP) PO SCH (09:55)
== END 2023-04-02 10:51 | disposition home or self-care (01) | DRG 775 ==
LOC: YASAS 13:40 → Y6N 16:57
PROVIDERS: ADMIT Allergy & Immunology; ATTEND Surgery
PROC: HZ2ZZZZ Detoxification Services for Substance Abuse Treatment (ICD-10-PCS; principal; 2023-03-28)
DX: F10.230 Alcohol dependence with withdrawal, uncomplicated (principal); F10.220 Alcohol dependence with intoxication, uncomplicated; F10.280 Alcohol dependence with alcohol-induced anxiety disorder; F10.282 Alcohol dependence with alcohol-induced sleep disorder; E72.20 Disorder of urea cycle metabolism, unspecified; E87.6 Hypokalemia; G40.909 Epilepsy, unspecified, not intractable, without status epilepticus; I10 Essential (primary) hypertension; D64.9 Anemia, unspecified; R74.01 Elevation of levels of liver transaminase levels
CPT/HCPCS: 36415; 80053; 82140; 84132; 85027; 86780; C9803-CS; Q0162; U0003; U0005

== ENCOUNTER 2025-04-24 21:23 | Inpatient (IN) | payer OTHER ==
[2025-04-24 21:43] VITALS: BMI 26.4
[2025-04-24] MEDS ORDERED: LOPERAMIDE HCL 2 MG CAPSULE PO PRN (22:01)
[2025-04-24] MEDS ORDERED: DICYCLOMINE HCL 10 MG CAPSULE PO PRN (22:01)
[2025-04-24] MEDS ORDERED: NALOXONE (NARCAN) HCL 4 MG/0.1 ML SPRAY NS PRN (22:01)
[2025-04-24] MEDS ORDERED: MAG HYDROX/AL HYDROX/SIMETH 30 ML UNIT-DOSE CUP PO PRN (22:01)
[2025-04-24] MEDS ORDERED: BISMUTH SUBSALICYLATE 524 MG/30 ML PO PRN (22:01)
[2025-04-24] MEDS ORDERED: POLYETHYLENE GLYCOL (HEALTHYLAX) 3350 17 GM PACKET PO PRN (22:01)
[2025-04-24] MEDS ORDERED: IBUPROFEN 400 MG TABLET (FP) PO PRN (22:01)
[2025-04-24] MEDS ORDERED: guaiFENesin 600 MG TABLET.ER (FP) PO PRN (22:01)
[2025-04-24] MEDS ORDERED: ONDANSETRON *ODT* 4 MG TABLET SL PRN (22:01)
[2025-04-24] MEDS ORDERED: BENZONATATE 200 MG CAPSULE PO PRN (22:01)
[2025-04-24] MEDS ORDERED: MAGNESIUM HYDROX 2400MG/30ML ORAL SUSPENSION 30 ML CUP PO PRN (22:01)
[2025-04-24] MEDS ORDERED: BENZOCAINE/MENTHOL (CHLORASEPTIC ) LOZENGE MM PRN (22:01)
[2025-04-24] MEDS ORDERED: IBUPROFEN 600 MG TABLET (FP) PO ONE (23:00)
[2025-04-24] MEDS ORDERED: levETIRAcetam 500 MG TABLET (FP) PO ONE (23:00)
[2025-04-24] MEDS: levETIRAcetam 500 MG TABLET (FP) PO SCH (23:01)
[2025-04-24] MEDS: IBUPROFEN 600 MG TABLET (FP) PO PRN (23:02)
[2025-04-24] MEDS: NYSTATIN POWDER 100,000 UNITS/GM - 15 GM TOPICAL POWDER TP SCH (23:50)
[2025-04-25] MEDS ORDERED: chlordiazePOXIDE HCL 25 MG CAPSULE PO PRN (08:59)
[2025-04-25] MEDS: amLODIPine BESYLATE 10 MG TABLET (FP) PO SCH (10:23)
[2025-04-25] MEDS: PRENATAL VITAMINS W/ FOLIC ACID TABLET (FP) PO SCH (10:23)
[2025-04-25] MEDS: chlordiazePOXIDE HCL 25 MG CAPSULE PO SCH (10:23)
[2025-04-25 11:47] LABS: HEMOGLOBIN 11.4 g/dL (13.7-17.5); MCHC 30.8 g/dl (32.3-36.5); MEAN CELL VOLUME 100.5 fl (79.0-92.2); MEAN PLT VOLUME 10.9 fl (9.4-12.4); PLATELET COUNT 244 x10^3/uL (163-337); RDW 14.3 % (12.2-16.1)
[2025-04-25 12:06] LABS: POTASSIUM 3.6 mmol/L (3.5-5.1)
[2025-04-25 12:16] LABS: CALCIUM 9.5 mg/dL (8.5-10.1)
[2025-04-25 12:17] LABS: ALBUMIN 3.6 g/dl (3.4-5.0); BLOOD UREA NITROGEN 14.4 mg/dL (7-18)
[2025-04-25 12:20] LABS: CREATININE 0.6 mg/dL (0.55-1.3)
[2025-04-25 12:21] LABS: BILIRUBIN,TOTAL 0.6 mg/dL (0.2-1)
[2025-04-25 12:22] LABS: TOT PROT 7.5 g/dl (6.4-8.2)
[2025-04-25] MEDS: hydrOXYzine PAMOATE 25 MG CAPSULE (FP) PO PRN (17:23)
[2025-04-25] MEDS: METHOCARBAMOL 500 MG TABLET PO PRN (17:23)
[2025-04-25] MEDS: METOPROLOL TARTRATE 25 MG TABLET (FP) PO ONE (19:03)
[2025-04-25] MEDS: MELATONIN 5 MG TABLETS PO SCH (22:32)
[2025-04-25] MEDS: THIAMINE 100 MG TABLET PO SCH (22:32)
[2025-04-27] MEDS: chlordiazePOXIDE HCL 25 MG CAPSULE PO SCH (05:12)
[2025-04-27] MEDS: ACETAMINOPHEN 325 MG TABLET (FP) PO PRN (05:13)
[2025-04-27] MEDS: LIDOCAINE 5% TOPICAL PATCH TP SCH (10:51)
[2025-04-27] MEDS: LIDOCAINE PATCH REMOVAL MC SCH (22:23)
[2025-04-28] MEDS ORDERED: chlordiazePOXIDE HCL 10 MG CAPSULE PO PRN
[2025-04-28] MEDS: chlordiazePOXIDE HCL 10 MG CAPSULE PO SCH (05:25)
[2025-04-28 11:56] LABS: SGOT/AST 76 U/L (15-37); SGPT/ALT 88 U/L (13-61)
[2025-04-29] MEDS: chlordiazePOXIDE HCL 10 MG CAPSULE PO SCH (05:43)
[2025-04-30] MEDS: chlordiazePOXIDE HCL 10 MG CAPSULE PO ONE (05:31)
[2025-04-30 11:15] VITALS: BP 128/91; PULSE 75; RESP 18; TEMP 98.4
== END 2025-04-30 09:46 | disposition home or self-care (01) | DRG 775 ==
LOC: YASAS 21:23 → Y6N 22:37 → Y3N 22:45 → Y6N 04-26 08:36
PROVIDERS: ADMIT Allergy & Immunology; ATTEND Allergy & Immunology
PROC: HZ2ZZZZ Detoxification Services for Substance Abuse Treatment (ICD-10-PCS; principal; 2025-04-24)
DX: F10.230 Alcohol dependence with withdrawal, uncomplicated (principal); F10.280 Alcohol dependence with alcohol-induced anxiety disorder; F32.A Depression, unspecified; G40.909 Epilepsy, unspecified, not intractable, without status epilepticus; D53.9 Nutritional anemia, unspecified; I10 Essential (primary) hypertension; M54.50 Low back pain, unspecified; G89.29 Other chronic pain; R74.01 Elevation of levels of liver transaminase levels; Z59.01 Sheltered homelessness
CPT/HCPCS: 36415; 80053; 80305; 80307; 84450; 84460; 85027